=== PATIENT | female | born 1925 | race Caucasian/White ===

== ENCOUNTER 2017-08-25 12:02 | Inpatient (IN) | payer MEDICARE ==
[2017-08-25] MEDS ORDERED: METOPROLOL TART25 MG PO (12:31)
[2017-08-25] MEDS ORDERED: LOSARTAN POTASS25 MG PO (12:32)
[2017-08-25] MEDS ORDERED: GLUCOPHAGE500 MG PO (12:33)
[2017-08-25] MEDS ORDERED: LASIX40 MG PO (12:33)
[2017-08-25] MEDS ORDERED: XANAX0.5 MG PO (12:34)
[2017-08-25] MEDS ORDERED: K-DUR20 MEQ PO (12:35)
[2017-08-25] MEDS ORDERED: DYAZIDE 37.5/251 CAP PO (12:35)
[2017-08-25] MEDS ORDERED: SYNTHROID100 MCG PO (12:36)
[2017-08-25] MEDS ORDERED: DEPAKOTE125 MG PO (12:37)
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
--- NOTE | 2017-08-25 14:51 | NUR ---
PATIENT YELLING, PUSHING ON THE DOORS, SHE IS DEMANDING, SHE IS NOT MAKING SENSE, SHE SAYS "WHY ARE YOU TREATING ME LIKE THIS, I GAVE YOU MONEY AND YOU DIDN'T EVEN KNOW IT" PATIENT IS NOT REDIRECTABLE, SHE WILL NOT LET STAFF TOUCH HER TO ASSESS OR TO GET V/S OR WEIGHT. PATIENT IS EXIT SEEKING. PATIENT DID RECEIVE IM INJECTION OF HALDOL 2 MG AND ATIVAN 0.5 MG IN RIGHT HIP, SEE MAR.
--- NOTE | 2017-08-26 01:36 | NUR ---
B) patient is alert and oriented to name, restless and pacing, accussing staff of being up to something, does not redirect I) Offered scheduled medications, monitored for falls and safety R) Refuesed all medications, exit seeking and wanting to roam the hallways, P) Continue plan of care.
[2017-08-26 07:07] LABS: BASOPHILS 0.3 % (0-2); EOSINOPHILS 0.3 % (0-7); HEMATOCRIT 38.7 % (36.0-48.0); HEMOGLOBIN 12.4 g/dL (12-16); IMMATURE GRANULOCYTES 0.3 % (0-5); LYMPHOCYTES 14.5 % (15-50); MCH 31.2 pg (26.0-34.0); MCV 97.5 fL (80.0-100.0); MEAN PLATELET VOLUME 10.7 fL (7.4-10.4); MONOCYTES 17.2 % (2-11); NEUTROPHILS 67.4 % (40-80); PLATELET COUNT 167 10x3/uL (130-400); RBC 3.97 10x6/uL (4.00-5.40); RDW 16.4 % (11.5-14.5); WBC 3.7 10x3/uL (4.8-10.8)
[2017-08-26 07:26] LABS: ALBUMIN 3.6 g/dL (3.4-5.0); ANION GAP 12.9 mmol/L (8-16); BILIRUBIN - TOTAL 0.48 mg/dL (0.2-1.3); CALCIUM 9.9 mg/dL (8.5-10.1); CARBON DIOXIDE 31.9 mmol/L (21.0-32.0); CHOL - HDL RATIO 2.2 ratio (2.3-4.1); CREATININE - SERUM 1.1 mg/dL (0.6-1.3); POTASSIUM - SERUM 3.8 mmol/L (3.5-5.1); PROTEIN - SERUM 7.8 g/dL (6.4-8.2); THYROID STIMULATING HORMONE 18.07 uIU/mL (0.36-3.74); VALPROIC ACID (DEPAKOTE) 9.6 ug/mL (50.0-100.0)
[2017-08-26 07:27] LABS: HEMOGLOBIN A1C 7.6 % (4.8-6.0)
[2017-08-26 08:57] VITALS: BP 144/85
--- NOTE | 2017-08-26 10:00 | NUR ---
B) PATIENT HAS BEEN PLEASANT AND SHE IS COOPERATIVE SHE HAS TAKEN HER MEDS, SHE IS SMILING, INITIALLY THIS AM SHE DIDN'T WANT TO BE ASSESSED, BUT SHE RELENTED. SHE AMULATES WITH WALKER AND DOES WELL. I) PROVIDE PRESCRIBED MEDS AND REDIRECT NEEDED. R) PATIENT REMAINS PLEASANT AND COOPERATIVE.
--- NOTE | 2017-08-26 12:00 | NUR ---
PATIENT DID RECEIVE HER FLU VACCINE TODAY IN HER RIGHT DELTOID, TOLERATED WELL.
[2017-08-26 19:00] VITALS: BP 164/86
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
--- NOTE | 2017-08-27 02:28 | NUR ---
B) Patient is alert and oriented to self, asked the same question over and over without retaining any informations, I) Administered scheduled medications, redirected and oriented as needed, R) Medication compliant, very confused and unaware of suroundings, P) Continue plan of care.
[2017-08-27 06:13] LABS: RAPID PLASMA REAGIN Non Reactive (Non Reactive)
[2017-08-27 07:24] LABS: FOLATE (FOLIC ACID) - SERUM >20.0 ng/mL (>3.0)
[2017-08-27 11:05] VITALS: BP 145/70
[2017-08-27 13:34] LABS: APPEARANCE CLEAR (CLEAR); BILIRUBIN NEGATIVE (NEGATIVE); COLOR YELLOW (YELLOW); GLUCOSE NEGATIVE (NEGATIVE); KETONE NEGATIVE (NEGATIVE); NITRITE NEGATIVE (NEGATIVE); PH 5.5 (5.0-6.0); PROTEIN NEGATIVE (NEGATIVE); UROBILINOGEN NORMAL (NORMAL)
--- NOTE | 2017-08-27 13:43 | NUR ---
B) PATIENT IS AWAKE AND ALERT SHE IS PLEASANT IN A GREAT MOOD THIS AMD SHE HAS TAKEN HER MEDS, ALLOWED STAFF TO ATTEMPT AN IN AND OUT CATH AND HAS AMBULATED AND INTERACTED WITH STAFF UNTIL NOW, SHE IS NOW GETTING VERY ANXIOUS STATING "I HAVE TO GO TO WORK, I NEED TO FEED MY FAMILY, THEY DEPEND ON ME" SHE IS SAYING "I HAVE TO TALK TO MY BOSS" ATTEMPTS TO REDIRECT ARE NOT WORKING SHE IS UPSET THAT SHE IS IS LATE FOR WORK, THIS IS UPSETTING HER AND MAKING HER ANXIOUS AND DISTRAUGHT. I) PROVIDE PRESCRIBED ATIVAN 0.5 MG AND HALDODOL 2 MG IM IN RIGHT HIP. R) PATIENT IS COMPLIANT WITH MEDS. P) CONTINUE POC.
--- NOTE | 2017-08-27 14:15 | NUR ---
PATIENT IS CALM, SHE IS SLEEPING, SHE IS NOT ANXIOUS AND WORRIED ABOUT HER JOB AND NOT TRYING TO LEAVE.
--- NOTE | 2017-08-27 22:19 | NUR ---
B) patient is napping in a chair in the day room, arrouses to name, oriented to self, calm and cooperative, I) Administered scheduled medications, monitored for safety and for falls, R) Medication compliant, resting quietly in bed now, P) Continue plan of care.
[2017-08-27 22:47] VITALS: BP 132/64
[2017-08-28 07:00] VITALS: BP 169/103
--- NOTE | 2017-08-28 11:19 | NUR ---
HALDOL 2MG IM GIVEN FOR AGGRESSION,THREATENING "TO TEAR THIS PLACE UP IF YOU DONT LET ME OUT".HAS REFUSED ALL ROUTINE MEDS THIS AM. WAS INFORMED OF ELEVATED BP 169/103,NO NEW ORDER WAS RECEIVED.
--- NOTE | 2017-08-28 12:29 | NUR ---
ATIVAN 0.5MG IM GIVEN FOR ANXIETY AND THREATENING STAFF,STATED " I'M GOING TO PRAY SOMETHING HAPPENS TO YOU AND YOU HAD BETTER NOT TURN YOUR BACK ON ME." walked into dayroom and took hold of wooden chair and was moving it around on the floor.SECURITY HERE.
--- NOTE | 2017-08-28 17:46 | NUR ---
IS CONFUSED AND DISORIENTED.ARGUMENTIVE,WANTS TO LEAVE SO SHE CAN GO TO HER WORK.AMBULATES PER SELF AND IS EXIT SEEKING,SHAKES DOORS AT TIMES.WILL CONTINUE WITH PLAN OF CARE,MONITOR FOR CHANGES AND SAFETY.REFUSED MEDS THIS AM.
--- NOTE | 2017-08-28 19:00 | NUR ---
SKIN TEAR TO LEFT INNER FINGER CLEANED WITH WOUND CLANSER AND BETADINE SWAB AND BANDAID APPLIED.DENIES KNOWING HOW SKIN TEAR OCCURED.
--- NOTE | 2017-08-28 20:36 | NUR ---
RECEIVED IN BEDROOM. VU ALARM SOUNDING. ATTENPTS TO AMBULATE WITHOUT ASSIST. REFUSED. PM VITALS. COOPERATIVE WITH PM ASSESSMENT. NO SIGNS OF AGGRESSION. REDIRECT AND REORIENT NEEDED. RESTING IN BED WITH EYES CLOSED AT THIS TIME. CONTINUE PLAN OF CARE
[2017-08-29 06:07] LABS: VITAMIN D 25 HYDROXY 13.8 ng/mL (30.0-100.0)
[2017-08-29 09:18] VITALS: BP 187/100
--- NOTE | 2017-08-29 18:35 | NUR ---
B) AWAKE AND ORIENTED TO SELF ONLY. ASSISTED TO BATHROOM WITH WALKER. CALM AND COOPERATIVE WITH ASSESSMENT. I) ADMINISTERED MEDICATIONS CRUSHED IN APPLESAUSE. SHE HAD DIFFICULTY R) COMPLIANT WITH TAKING MEDICATIONS. P) MAINTAIN FALL PRECAUTIONS AND CONTINUE PLAN OF CARE.
[2017-08-29 20:09] VITALS: BP 154/76
--- NOTE | 2017-08-29 23:16 | NUR ---
RECEIVED IN BEDROOM. SITTING IN WHEELCHAIR. BEGGING STAFF TO LET HER GO HOME TONIGHT. ASSISTED TO TRANSFER TO BED. GETS OUT OF BED WITHOUT ASSIST. ALARM SOUNDS. CONFUSED. CALM AND COOPERATIVE [facility] CARE AND ASSESSMENT. NO SIGNS OF AGGRESSION. REDIRECT AND REORIENT NEEDED. RESTING IN BED WITH EYES CLOSED AT THIS TIME. CONTINUE PLAN OF CARE.
[2017-08-30 09:24] VITALS: BP 175/87
[2017-08-30 09:54] VITALS: BP 175/87
--- NOTE | 2017-08-30 10:27 | PN ---
PATIENT:GERSON SHEA MEDICAL RECORD: [id number] LOCATION:[facility] Garcia112 ADMISSION DATE: 08/25/17 PROGRESS NOTE DATE OF SERVICE: 08/29/2017 SUBJECTIVE: No new complaint. OBJECTIVE: The patient has been showing some improvement over the weekend. She is not as combative as before. She is taking her medications as prescribed. No evidence of urinary tract infection. On exam, mood for the most part euthymic. Affect very shallow. Speech is terse. Content of thought focuses only on somatic concerns. Sensorium is unchanged. ASSESSMENT: No change in diagnosis. PLAN: 1. Continue current medications. 2. Continue supportive therapy. TRANSINT:[id number] Voice Confirmation ID: [id number] DOCUMENT ID: [id number] BRENDON ROBBINS III, MD at 1027 CC: [id number] DICTATION DATE: 08/29/17 1223 TEXTILE BAG SEWER: 08/29/17 1238 ADM IN [facility] [address] [place] [address]
--- NOTE | 2017-08-30 13:07 | NUR ---
NUTRITION F/U CHART REVIEWED. PT WITH ~50% INTAKE RECENT MEALS. RECEIVING ENSURE BID. LAST BM RECORDED 08/26/16. WILL CONTINUE TO PROVIDE DIET, ENSURE. MONITOR PO INTAKE. RD FOLLOWING
[2017-08-30 20:52] VITALS: BP 160/86
--- NOTE | 2017-08-30 23:38 | NUR ---
RECEIVED IN ROOM. RESTING IN BED WT EYES OPEN. CONFUSED. ATTEMPTS TO GET UP WITHOUT ASSISTANCE. ALARM SOUNDING. CALM AND COOPERATIVE WITH CARE AND ASSESSMENT. NO SIGNS OF AGGRESSION. ENCOURAGE TO EXPRESS NEEDS. REDIRECT AND REORIENT NEEDED. RESTING IN BED WT EYES CLOSED AT THIS TIME. CONTINUE PLAN OF CARE.
--- NOTE | 2017-08-31 08:00 | NUR ---
B) AWAKE, AND ORIENTED TO SELF ONLY, SITTING IN DINING ROOM SMILING THIS MORNING, JOKING WITH THIS NURSE, " WILL DONATE MY PILLS FOR YOU.", IN A PLEASANT MOOD. AMBULATES WITH A WALKER, BUT NEEDS HELP GETTING OUT OF CHAIR I) ADMINISTERED PRESCRIBED MEDICATIONS, VSS, ASSESSMENT COMPLETED. R) COMPLIANT WITH TAKING MEDICATIONS CRUSHED IN APPLESAUCE. MONITOR FOR SAFETY. P) CONTINUE PLAN OF CARE
[2017-08-31 09:00] VITALS: BP 160/80
--- NOTE | 2017-08-31 10:34 | PN ---
PATIENT:GERSON SHEA MEDICAL RECORD: [id number] LOCATION:[facility] ADMISSION DATE: 08/25/17 PROGRESS NOTE DATE OF SERVICE: 08/30/2017 SUBJECTIVE: No new complaint. OBJECTIVE: Staff notes the patient is somewhat sleepy. Aside from this, no new behavioral problems. On exam, mood is for the most part euthymic. Affect is bland and somewhat constricted. Speech is terse. Content of thought is negative for overt psychosis. Sensorium is unchanged. ASSESSMENT: No change in diagnosis. PLAN: 1. Reduce perphenazine to 2 mg h.s. only. 2. Continue other current medications. 3. Continue supportive therapy. TRANSINT:[id number] Voice Confirmation ID: [id number] DOCUMENT ID: [id number] BRENDON ROBBINS III, MD at 1034 CC: [id number] DICTATION DATE: 08/30/17 1145 BIOMASS POWER PLANT SUPERINTENDENT: 08/30/17 1159 ADM IN [place] [id number] [place] [id number]
--- NOTE | 2017-08-31 11:40 | NUR ---
PATIENT AWAKENED FROM A NAP, CONFUSED. SHE WANTED US TO TAKE HER BACK TO HER HOUSE, BECAUSE SHE LEFT AN ELECTRICAL CORD ON. I JUST LEFT MY HOUSE TODAY. SHE ARGUED THAT SHE HAS NOT BEEN HERE SINCE THE 08/25/17. FINALLY GOT HER TO SIT BACK DOWN IN CHAIR AND SHE TOOK ANOTHER NAP.
[2017-08-31 20:22] VITALS: BP 110/56
--- NOTE | 2017-09-01 02:28 | NUR ---
B) patient is alert and oriented to her name, unaware of her surrounding, very confused, wanders at times I) Administered scheduled medications, monitored for safety R) Medication compliant, restless at times, constantly looking for someone or something, P) Continue plan of care.
[2017-09-01 08:31] VITALS: BP 180/91
--- NOTE | 2017-09-01 09:04 | PN ---
PATIENT:GERSON SHEA MEDICAL RECORD: [id number] LOCATION:[facility] Kirk ADMISSION DATE: 08/25/17 PROGRESS NOTE DATE OF SERVICE: 08/31/2017 SUBJECTIVE: No new complaint. OBJECTIVE: The patient has been showing steady improvement. She is much more comfortable with staff. No outbursts of anger. She is tolerating medication well. On exam, mood is euthymic. Affect is bland. Speech is somewhat terse. Content of thought is negative for overt psychosis. Sensorium is unchanged. ASSESSMENT: No change in diagnosis. PLAN: 1. Maintain current medication. 2. Continue supportive therapy. TRANSINT:[id number] Voice Confirmation ID: [id number] DOCUMENT ID: [id number] BRENDON ROBBINS III, MD at 0904 CC: [id number] DICTATION DATE: 08/31/17 1130 DISPATCH MANAGER: 08/31/17 1208 ADM IN [facility] [address] [place] [address]
--- NOTE | 2017-09-01 12:30 | NUR ---
B) PATIENT IS AWAKE AND ALERT SHE HAS BEEN PLEASANT AND COOPERATIVE, SHE AMBULATES WITH A WALKER, SHE IS ORIENTED X1, SHE HAS NO IDEA WHERE SHE IS LOCATED. I) PROVIDE PRESCRIBED MEDS. R) PATIENT COMPLIANT WITH MEDS. P) CONTINUE POC.
[2017-09-01 22:51] VITALS: BP 187/98
--- NOTE | 2017-09-02 02:25 | NUR ---
B) patient is alert and oriented to self, very confused and disoriented, wwanders in the day room, I) Administered scheduled medications crushed in apple sauce, monitored for safety and for falls, R) medication compliant, pleasant and cooperative, restless at times wanting to go to bed, P) Continue plan of care.
--- NOTE | 2017-09-02 07:51 | NUR ---
PATIENT IS SITTING IN THE HALLWAY, SHE DROPPED HER GLASSES ON THE FLOOR AND THE BRIDGE BROKE AND THE ONE EAR PIECE. SHE IS PLEASANT AND HAS NOT SHOWN ANY AGGRESSION OR ELOPEMENT THIS AM. PROVIDE PRESCRIBED MEDS. PATIENT LIKES HER MEDS CRUSHED IN CHOCOLATE PUDDING AND SHE WILL TAKE THEM WITHOUT ANY ISSUES. PATIENT IS COOPERATIVE TO PARTICIPATE IN GROUPS AND ACTIVITIES. CONTINUE POC.
[2017-09-02 10:00] VITALS: BP 168/88
[2017-09-02 10:05] VITALS: BMI 34.7
--- NOTE | 2017-09-02 16:05 | NUR ---
SW MET WITH PT'S DTRS AND DIL TO DISCUSS PT'S CONDITION AND DISCHARGE PLANNING. PT BECAME TEARFUL DURING LATER PART OF VISIT. PT'S DTR EXPRESSED UNDERSTANDING OF DISCHARGE PLANS AND CARE NEEDED AT THIS TIME. LATE ENTRY FROM 09/01
[2017-09-02 19:30] VITALS: BP 183/93
--- NOTE | 2017-09-03 01:57 | NUR ---
B) Patient is alert and oriented to self, calm and cooperative this shift, very confused and wanders at times I) Administered scheduled medications, monitored for safety R) Medication compliant, resting quietly in bed. P) Continue plan of care.
[2017-09-03 08:00] VITALS: BP 181/91
--- NOTE | 2017-09-03 11:00 | NUR ---
PATIENT IS ALERT AND ORIENTED TO SELF. CALM AND COOPERATIVE WITH CARE AND ASSESSMENT. ADMINISTERED PRESCRIBED MEDICATIONS. COMPLIANT WITH TAKING MEDS CRUSHED IN APPLESAUCE. REIRECT AND REORIENT NEEDED. CONTINUE POC.
--- NOTE | 2017-09-03 11:00 | PN ---
PATIENT:GERSON SHEA MEDICAL RECORD: [id number] LOCATION:J[facility]112 ADMISSION DATE: 08/25/17 PROGRESS NOTE DATE OF SERVICE: 09/02/2017 SUBJECTIVE: The patient's case was discussed with staff. She has no new complaint. OBJECTIVE: The patient is in good behavioral control with limited insight about her condition. She generally tolerates her medicines well. ASSESSMENT: No change in diagnoses. PLAN: Brief supportive and educational interventions were made. Current medicines have been reviewed and will be maintained. TRANSINT:[id number] Voice Confirmation ID: [id number] DOCUMENT ID: [id number] CATRINA RAYMOND MD at 1100 CC: [id number] DICTATION DATE: 09/02/17 1256 EQUIPMENT SERVICE ENGINEER: 09/02/17 1344 ADM IN [id number] [place] [address]
[2017-09-03 19:30] VITALS: BP 141/79
--- NOTE | 2017-09-04 02:55 | NUR ---
RECEIVED IN ROOM. SITING ON SIDE OF BED. COOPERATIVE WITH CARE AND ASSESSMENT. CONFUSED. ANXIOUS. ATTEMPTING TO GET OUT OF BED WTIHOUT ASSISTANCE. PATINET UNABLE TO REDIRECT. PATIENT TRANSFERED TO RECLINER AND MOVED TO [place] WITH ONE ON ONE CARE FOR SAFETY. PATIENT CONTINUED TO CLIMB OUT OF RECLINER CHAIR. UNABLE TO REDIRECT. PATIENT YELLING OUT AND DISTURBING OTHER PATIENTS ON UNIT. PRN ATIVAN 0.5 IM AND PRN HALDOL 2 MG IM GIVEN FOR INCREASING ANXIETY AND PSYCHOTIC BEHAVIOR. PATIENT CONTINUES TO SIT IN RECLINER IN [place] WITH ONE ON ONE CARE. CONTINUE PLAN OF CARE.
[2017-09-04 08:00] VITALS: BP 163/93
--- NOTE | 2017-09-04 10:33 | NUR ---
PATIENT SITTING UP IN HER WHEELCHAIR WITH HER EYES CLOSED. HEAD IS POINTED DOWN WITH HER CHIN TO HER CHEST. RESPIRATIONS ARE EVEN AND UNLABORED. PATIENT AWAKENS TO VERBAL AND TACTILE STIMULATION. SCHEDULED MORNING MEDICATIONS CRUSHED AND PUT IN APPLESAUCE. PATIENT SWALLOWED APPLESAUCE AND MEDS WITHOUT ANY PROBLEMS NOTED. PATIENT IMMEDIATELY WENT BACK TO SLEEP WITH HER EYES CLOSED AFTER TAKING HER MEDICATIONS. WILL CONTINUE TO MONITOR PATIENT FOR SAFETY AND CONTINUE PLAN OF CARE.
[2017-09-04 19:30] VITALS: BP 118/61
--- NOTE | 2017-09-05 00:19 | NUR ---
RECEIVED IN PATIENT ROOM. RESTING IN BED WTIH EYES CLOSED. RESPONDS TO VOICE. CALM AND COOPERATIVE WITH CARE AND ASSESSMENT. NO SIGNS OF AGGRESSION. VERY CONFUSED. ATTEMPTS TO STAND WITHOUT ASSIST FROM BED. ALARM SOUNDING. REDIRECT AND REORIENT NEEDED. RESTING IN BED WITH EYES CLOSED AT THIS TIME. CONTINUE PLAN OF CARE.
[2017-09-05 08:00] VITALS: BP 168/104
--- NOTE | 2017-09-05 10:19 | PN ---
PATIENT:GERSON SHEA MEDICAL RECORD: [id number] LOCATION:[facility]112 ADMISSION DATE: 08/25/17 PROGRESS NOTE DATE OF SERVICE: 09/01/2017 SUBJECTIVE: No new complaint. OBJECTIVE: The patient is continuing to do well. She remains confused, but has followed directions fairly well. On exam, mood is euthymic. Affect is constricted. Speech is terse. Content of thought negative for overt psychosis. Sensorium unchanged. ASSESSMENT: No change in diagnosis. PLAN: 1. Maintain current medication. 2. Continue supportive therapy. TRANSINT:[id number] Voice Confirmation ID: [id number] DOCUMENT ID: [id number] BRENDON ROBBINS III, MD at 1019 CC: [id number] DICTATION DATE: 09/01/17 1008 VICE PRESIDENT OF MANUFACTURING: 09/01/17 1156 ADM IN [id number] [place] [address]
--- NOTE | 2017-09-05 13:31 | NUR ---
ORIENTED TO PERSON ONLY. PT CONTINUES TO BE LETHARGIC AND MEDICATIONS CHANGED DUE TO THIS. PT DOES WAKE UP WITH STIMULATION BUT DOES NOT STAY AWAKE. NO AGGRESSION NOTED. MED COMPLIANT. ENCOURAGED PT TO EAT MORE. FALL PRECAUTIONS MAINTAINED. WILL CONTINUE TO MONITOR AND CONTINUE WITH PLAN OF CARE.
--- NOTE | 2017-09-05 13:37 | PN ---
PATIENT:GERSON SHEA MEDICAL RECORD: [id number] LOCATION:[facility]112 ADMISSION DATE: 08/25/17 PROGRESS NOTE DATE OF SERVICE: 09/03/2017 SUBJECTIVE: The patient's case was discussed with staff. She has no new complaint. OBJECTIVE: The patient is in good behavioral control with poor insight about her condition. ASSESSMENT: No change in diagnoses. PLAN: Brief supportive and educational interventions were made. Long Term prognosis is guarded. TRANSINT:[id number] Voice Confirmation ID: [id number] DOCUMENT ID: [id number] CATRINA RAYMOND MD at 1337 CC: [id number] DICTATION DATE: 09/03/17 1128 CAPSULE FILLING MACHINE OPERATOR: 09/03/17 1157 ADM IN [id number] [place] [address]
[2017-09-05 21:18] VITALS: BP 154/70
--- NOTE | 2017-09-06 00:12 | NUR ---
RECEIVED IN [place]. SITTING IN WHEELCHAIR OUTSIDE OF NURSES STATION. CALM AND COOPERATIVE WITH CARE AND ASSESSMENT. NO SIGNS OF AGGRESSION. VERY CONFUSED. ATTEMPTS TO STAND WITHOUT ASSIST FROM BED. ALARM SOUNDING. REDIRECT AND REORIENT NEEDED. RESTING IN BED WTIH EYES CLOSED AT THIS TIME. CONTINUE PLAN OF CARE.
--- NOTE | 2017-09-06 05:37 | PN ---
PATIENT:GERSON SHEA MEDICAL RECORD: [id number] LOCATION:JORGE Kirk ADMISSION DATE: 08/25/17 PROGRESS NOTE DATE OF SERVICE: 09/05/2017 SUBJECTIVE: No new complaint. OBJECTIVE: Staff reports the patient has become more sedated. She has not exhibited any aggressive behavior; however, oral intake is poor. On exam, mood is euthymic. Affect constricted. Speech minimal. Content of thought is negative for overt psychosis. Sensorium is unchanged. ASSESSMENT: No change in diagnosis. PLAN: 1. Discontinue perphenazine. 2. Begin Megace 40 mg twice a day. 3. Continue other medications and supportive therapy. TRANSINT:[id number] Voice Confirmation ID: [id number] DOCUMENT ID: [id number] BRENDON ROBBINS III, MD at 0537 CC: [id number] DICTATION DATE: 09/05/17 1136 CRANE ASSEMBLER: 09/05/17 1221 ADM IN [facility] [address] [place] [address]
[2017-09-06] MEDS ORDERED: MEGACE40 MG PO (12:26)
[2017-09-06] MEDS ORDERED: METOPROLOL TART50 MG PO (12:27)
[2017-09-06] MEDS ORDERED: DEPAKOTE SPRIN125 MG PO (12:28)
[2017-09-06] MEDS ORDERED: VITAMIN D5000 UNIT PO (12:29)
[2017-09-06] MEDS ORDERED: SYNTHROID150 MCG PO (12:29)
--- NOTE | 2017-09-06 13:28 | NUR ---
Alert and oriented to name and place. Calm and ccoperative with care. Pleasant behavior, stated to immigration case worker that she felt " fantastic". Continue to monitor and encourage to express needs and redirect as needed. Continue plan of care.
[2017-09-06 20:39] VITALS: BP 152/71
--- NOTE | 2017-09-07 02:55 | NUR ---
RECEIVED IN BEDROOM. RESTING IN BED WITH EYES OPEN. CALM AND COOPERATIVE WITH CARE AND ASSESSMENTS. STANDS WITHOUT ASSIST FROM BED. REINFORCE TO USE CALL BURTON SYSTEM. NO SIGNS OF AGGRESSION. REDIRECT AND REORIENT NEEDED. RESTING IN BED EYES OPEN AT THIS TIME. YELLS OUT AT TIMES. CONTINUE PLAN OF CARE
--- NOTE | 2017-09-07 10:43 | PN ---
PATIENT:GERSON SHEA MEDICAL RECORD: [id number] LOCATION:JOR[facility] Garcia112 ADMISSION DATE: 08/25/17 PROGRESS NOTE DATE OF SERVICE: 09/06/2017 SUBJECTIVE: No new complaint. OBJECTIVE: The patient has been doing considerably better. No further aggression. She is sleeping better. On exam, mood is euthymic. Affect is bland. Speech is rather terse. Content of thought is negative for overt psychosis. Sensorium is unchanged. ASSESSMENT: No change in diagnosis. PLAN: 1. Continue current treatment plan. 2. Anticipate discharge tomorrow. TRANSINT:[id number] Voice Confirmation ID: [id number] DOCUMENT ID: [id number] BRENDON ROBBINS III, MD at 1043 CC: [id number] DICTATION DATE: 09/06/17 1234 INSTRUCTOR DANCING: 09/06/17 1300 ADM IN [place] [place] [address]
[2017-09-07 11:07] VITALS: BP 111/56
--- NOTE | 2017-09-07 12:07 | NUR ---
B) PATIENT IS PLEASANT THIS AM, SHE HAS NOT SHOWN ANY AGGRESSION OR PARANOIA, SHE IS COMPLIANT WITH MEDS, AMBULATES WELL WITH A WALKER, SHE IS ORIENTED TO SELF ONLY. I) PROVIDE PRESCRIBED MEDS. R) PATIENT INTERACTS IN SOME GROUPS, SHE HAS A GOOD SENSE OF HUMOR AND JOKES WITH STAFF AT TIMES. P) CONTINUE POC.
--- NOTE | 2017-09-07 12:39 | NUR ---
CALLED REPORT TO JUSTINE, ALL PAPERWORK FAXED AND HARD COPIES ARE MADE TO SEND WITH INVESTMENT REPRESENTATIVE WHEN SHE D/C'S WITH THEM.
--- NOTE | 2017-09-07 13:00 | NUR ---
PERSONAL BELONGINGS RETURNED TO PATIENT, PT ALERT, CALM, COOPERATIVE, ASSISTED TO EXIT DOOR FOR DISCHARGE TO LTC FACILITY. ASSISTED INTO N/H VAN ACCOMPANIED BY N/H PERSONNEL. PT DENIES PAIN OR NEEDS AT THIS TIME. NO S/S DISTRESS.
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
== END 2017-09-07 15:00 | DRG 57 ==
LOC: EDBD → D.PSYCH 12:02
PROVIDERS: ADMIT Psychiatry & Neurology Psychiatry
DX: G30.9 Alzheimer's disease, unspecified (principal); F02.81 Dementia in other diseases classified elsewhere, unspecified severity, with behavioral disturbance; E11.9 Type 2 diabetes mellitus without complications; E03.9 Hypothyroidism, unspecified; I10 Essential (primary) hypertension; E55.9 Vitamin D deficiency, unspecified; Z74.09 Other reduced mobility